=== PATIENT | male | born 1990 | race African-American/Black ===

== ENCOUNTER 2017-12-03 23:32 | Emergency (ER) | payer OTHER ==
[~2017-12-03] VITALS: Ht 190.5 cm; Wt 80.0 kg
[~2017-12-03 23:32] MED LIST: AMOX500T2 PO; IBUP-2070 PO
[2017-12-04 02:07] VITALS: BP 119/56
[2017-12-04] MEDS ORDERED: NAPROXEN 250 MG TABLET PO ONE (02:15)
== END 2017-12-04 02:19 | disposition home or self-care (01) ==
LOC: EMS 23:33
DX: S60.211A Contusion of right wrist, initial encounter (principal); J45.909 Unspecified asthma, uncomplicated; F90.9 Attention-deficit hyperactivity disorder, unspecified type; F17.200 Nicotine dependence, unspecified, uncomplicated; Z91.018 Allergy to other foods; W22.8XXA Striking against or struck by other objects, initial encounter; Y93.89 Activity, other specified; Y92.89 Other specified places as the place of occurrence of the external cause; Y99.8 Other external cause status
CPT/HCPCS: 99284

== ENCOUNTER 2018-01-04 21:49 | Emergency (ER) | payer OTHER ==
[~2018-01-04] VITALS: Ht 188 cm; Wt 68.2 kg
[~2018-01-04 21:49] MED LIST changes: -AMOX500T2 PO
[2018-01-04] MEDS ORDERED: IBUPROFEN 600 MG TABLET PO ONE (22:45)
[2018-01-04] MEDS ORDERED: HYDROCODONE/ACETAMINOPHEN 5-325 MG TABLET PO ONE (22:45)
[2018-01-05 00:05] VITALS: BP 128/70
== END 2018-01-05 00:41 | disposition home or self-care (01) ==
LOC: EMS 21:50
DX: S63.91XA Sprain of unspecified part of right wrist and hand, initial encounter (principal); J45.909 Unspecified asthma, uncomplicated; Z87.891 Personal history of nicotine dependence; Z91.018 Allergy to other foods; V29.9XXA Motorcycle rider (driver) (passenger) injured in unspecified traffic accident, initial encounter; Y93.55 Activity, bike riding; Y92.89 Other specified places as the place of occurrence of the external cause; Y99.8 Other external cause status
CPT/HCPCS: 99284

== ENCOUNTER 2018-05-30 11:29 | Emergency (ER) | payer OTHER ==
[~2018-05-30] VITALS: Ht 185.4 cm; Wt 68.2 kg
[2018-05-30] MEDS ORDERED: IBUPROFEN 800 MG TABLET PO ONE (12:15)
[2018-05-30 13:37] VITALS: BP 131/77
== END 2018-05-30 13:47 | disposition home or self-care (01) ==
LOC: EMS 11:30
DX: S60.221A Contusion of right hand, initial encounter (principal); J45.909 Unspecified asthma, uncomplicated; F17.210 Nicotine dependence, cigarettes, uncomplicated; Z91.018 Allergy to other foods; V19.9XXA Pedal cyclist (driver) (passenger) injured in unspecified traffic accident, initial encounter; Y93.I9 Activity, other involving external motion; Y92.89 Other specified places as the place of occurrence of the external cause; Y99.8 Other external cause status
CPT/HCPCS: 99284

== ENCOUNTER 2018-09-13 01:52 | Emergency (ER) | payer OTHER ==
[~2018-09-13] VITALS: Ht 185.4 cm; Wt 75.0 kg
[2018-09-13] MEDS ORDERED: IBUPROFEN 600 MG TABLET PO ONE (04:45)
[2018-09-13 05:07] VITALS: BP 126/72
== END 2018-09-13 05:38 | disposition home or self-care (01) ==
LOC: EMS 01:53
DX: S63.91XA Sprain of unspecified part of right wrist and hand, initial encounter (principal); J45.909 Unspecified asthma, uncomplicated; F17.210 Nicotine dependence, cigarettes, uncomplicated; Z91.018 Allergy to other foods; W18.39XA Other fall on same level, initial encounter; Y93.61 Activity, american tackle football; Y92.89 Other specified places as the place of occurrence of the external cause; Y99.8 Other external cause status
CPT/HCPCS: 99406

== ENCOUNTER 2019-02-15 20:19 | Emergency (ER) | payer OTHER ==
[~2019-02-15] VITALS: Ht 188 cm; Wt 65.9 kg
[2019-02-16] MEDS ORDERED: HYDROCODONE/ACETAMINOPHEN 5-325 MG TABLET PO ONE
[2019-02-16] MEDS ORDERED: METHOCARBAMOL 500 MG TABLET PO ONE
[2019-02-16 00:16] VITALS: BP 126/72
== END 2019-02-16 00:19 | disposition home or self-care (01) ==
LOC: EMS 20:20
DX: S39.012A Strain of muscle, fascia and tendon of lower back, initial encounter (principal); J45.909 Unspecified asthma, uncomplicated; F12.90 Cannabis use, unspecified, uncomplicated; F17.210 Nicotine dependence, cigarettes, uncomplicated; Z91.030 Bee allergy status; Z91.018 Allergy to other foods; X50.0XXA Overexertion from strenuous movement or load, initial encounter; Y93.89 Activity, other specified; Y92.89 Other specified places as the place of occurrence of the external cause; Y99.8 Other external cause status

== ENCOUNTER 2019-06-10 03:11 | Emergency (ER) | payer OTHER ==
[~2019-06-10] VITALS: Ht 188 cm; Wt 70.5 kg
[2019-06-10 04:14] LABS: BASOPHILS % (AUTO) 0.4 % (0.0-2.0); EOSINOPHILS % (AUTO) 0.1 % (1.0-6.0); HEMATOCRIT 40.8 % (41-53); HEMOGLOBIN 14.1 g/dL (13.5-17.5); LYMPHOCYTES % (AUTO) 12.7 % (22.0-44.0); MEAN CORPUSCULAR HGB CONC 34.6 G/dL (31.0-37.0); MEAN CORPUSCULAR VOLUME 93 fL (80-100); MONOCYTES # (AUTO) 0.5 K/uL (0.1-1.0); NEUTROPHILS # (AUTO) 6.1 K/uL (1.8-7.7); NEUTROPHILS % (AUTO) 80.8 % (40.0-70.0); PLATELET COUNT (AUTO) 220 K/uL (150-450); RED BLOOD CELL COUNT(AUTO) 4.41 MIL/uL (4.50-5.90); RED CELL DISTRIBUTION WIDTH 13.9 % (11.5-14.5)
[2019-06-10 04:15] VITALS: BP 132/7
[2019-06-10 04:22] LABS: ANION GAP 9 mmol/L (8-16); CALCIUM, TOTAL 9.8 mg/dL (8.8-10.5); CARBON DIOXIDE 29 mmol/L (22-29); CHLORIDE 104 mmol/L (98-107); CREATININE 1.01 mg/dL (0.60-1.30); GLOMERULAR FILTR. RATE CALC > 60 mL/min (>60); GLUCOSE,RANDOM 95 mg/dL (70-110); POTASSIUM 4.3 mmol/L (3.5-5.1); SODIUM SERUM 142 mmol/L (136-145); UREA NITROGEN, BLOOD 9 mg/dL (7-18)
[2019-06-10 04:28] LABS: ALANINE AMINOTRANSFERASE 22 U/L (12-78); ALBUMIN 4.7 g/dL (3.4-5.0); ALKALINE PHOSPHATASE 68 U/L (46-116); ASPARTATE AMINOTRANSFERASE 17 U/L (15-37); BILIRUBIN,TOTAL 0.3 mg/dL (0.1-1.0); TOTAL PROTEIN, SERUM 8.2 g/dL (6.4-8.2)
== END 2019-06-10 05:23 | disposition left against medical advice (07) ==
LOC: EMS 03:11
DX: F10.129 Alcohol abuse with intoxication, unspecified (principal); F17.210 Nicotine dependence, cigarettes, uncomplicated; F12.90 Cannabis use, unspecified, uncomplicated; J45.909 Unspecified asthma, uncomplicated; Y90.0 Blood alcohol level of less than 20 mg/100 ml
CPT/HCPCS: 36415; 80053; 84484; 85025; 99283; G0480

== ENCOUNTER 2019-08-14 10:35 | Emergency (ER) | payer OTHER ==
[~2019-08-14] VITALS: Ht 188 cm; Wt 70.5 kg
[2019-08-14] MEDS ORDERED: IBUPROFEN 400 MG TABLET PO ONE (11:30)
[2019-08-14] MEDS ORDERED: LIDOCAINE 5% TRANSDERMAL PATCH TD ONE (11:30)
[2019-08-14 13:07] LABS: BASOPHILS % (AUTO) 0.3 % (0.0-2.0); EOSINOPHILS % (AUTO) 0.2 % (1.0-6.0); HEMATOCRIT 39.4 % (41-53); HEMOGLOBIN 13.7 g/dL (13.5-17.5); LYMPHOCYTES # (AUTO) 1.3 K/uL (1.0-4.8); LYMPHOCYTES % (AUTO) 11.9 % (22.0-44.0); MEAN CORPUSCULAR HEMOGLOBIN 32.2 pg (26.0-34.0); MEAN CORPUSCULAR HGB CONC 34.7 G/dL (31.0-37.0); MEAN CORPUSCULAR VOLUME 93 fL (80-100); MONOCYTES # (AUTO) 1.2 K/uL (0.1-1.0); MONOCYTES % (AUTO) 10.8 % (2.0-9.0); NEUTROPHILS # (AUTO) 8.2 K/uL (1.8-7.7); NEUTROPHILS % (AUTO) 76.8 % (40.0-70.0); PLATELET COUNT (AUTO) 245 K/uL (150-450); RED BLOOD CELL COUNT(AUTO) 4.25 MIL/uL (4.50-5.90); RED CELL DISTRIBUTION WIDTH 13.8 % (11.5-14.5)
[2019-08-14 13:17] LABS: ANION GAP 8 mmol/L (8-16); CALCIUM, TOTAL 8.9 mg/dL (8.8-10.5); CARBON DIOXIDE 29 mmol/L (22-29); CHLORIDE 103 mmol/L (98-107); CREATININE 0.92 mg/dL (0.60-1.30); GLOMERULAR FILTR. RATE CALC > 60 mL/min (>60); GLUCOSE,RANDOM 99 mg/dL (70-110); POTASSIUM 3.8 mmol/L (3.5-5.1); SODIUM SERUM 140 mmol/L (136-145); UREA NITROGEN, BLOOD 12 mg/dL (7-18)
[2019-08-14 13:23] LABS: ALANINE AMINOTRANSFERASE 18 U/L (12-78); ALBUMIN 3.9 g/dL (3.4-5.0); ALKALINE PHOSPHATASE 74 U/L (46-116); ASPARTATE AMINOTRANSFERASE 15 U/L (15-37); BILIRUBIN,TOTAL 0.5 mg/dL (0.1-1.0)
[2019-08-14 15:03] VITALS: BP 123/71
== END 2019-08-14 15:05 | disposition home or self-care (01) ==
LOC: EMS 10:36
DX: S20.211A Contusion of right front wall of thorax, initial encounter (principal); J45.909 Unspecified asthma, uncomplicated; F90.9 Attention-deficit hyperactivity disorder, unspecified type; F17.210 Nicotine dependence, cigarettes, uncomplicated; F12.90 Cannabis use, unspecified, uncomplicated; Z88.8 Allergy status to other drugs, medicaments and biological substances; Z91.030 Bee allergy status; Z79.899 Other long term (current) drug therapy; X50.9XXA Other and unspecified overexertion or strenuous movements or postures, initial encounter; Y93.89 Activity, other specified; Y92.89 Other specified places as the place of occurrence of the external cause; Y99.8 Other external cause status

== ENCOUNTER 2019-10-12 08:45 | Emergency (ER) | payer OTHER ==
[~2019-10-12] VITALS: Ht 188 cm; Wt 68.2 kg
[2019-10-12] MEDS ORDERED: KETOROLAC TROMETHAMINE 30 MG/ML VIAL IM ONE (09:15)
[2019-10-12] MEDS ORDERED: HYDROCODONE/ACETAMINOPHEN 5-325 MG TABLET PO ONE (09:15)
[2019-10-12 09:49] VITALS: BP 110/72
== END 2019-10-12 10:45 | disposition home or self-care (01) ==
LOC: EMS 08:45
DX: S76.011A Strain of muscle, fascia and tendon of right hip, initial encounter (principal); S43.491A Other sprain of right shoulder joint, initial encounter; J45.909 Unspecified asthma, uncomplicated; F90.9 Attention-deficit hyperactivity disorder, unspecified type; F17.210 Nicotine dependence, cigarettes, uncomplicated; F12.90 Cannabis use, unspecified, uncomplicated; F11.90 Opioid use, unspecified, uncomplicated; Z88.8 Allergy status to other drugs, medicaments and biological substances; V18.0XXA Pedal cycle driver injured in noncollision transport accident in nontraffic accident, initial encounter; Y93.89 Activity, other specified; Y92.488 Other paved roadways as the place of occurrence of the external cause; Y99.8 Other external cause status
CPT/HCPCS: 73030; 73502; 96372; 99283; J1885

== ENCOUNTER 2020-06-01 17:32 | Emergency (ER) | payer OTHER ==
[~2020-06-01] VITALS: Ht 190.5 cm; Wt 79.5 kg
[2020-06-01 17:34] VITALS: BP 119/82
== END 2020-06-01 18:00 | disposition left against medical advice (07) ==
LOC: EMS 17:33
DX: Z53.21 Procedure and treatment not carried out due to patient leaving prior to being seen by health care provider (principal)

== ENCOUNTER 2020-06-01 20:57 | Emergency (ER) | payer OTHER ==
[~2020-06-01] VITALS: Ht 188 cm; Wt 79.5 kg
[2020-06-01] MEDS ORDERED: IBUPROFEN 600 MG TABLET PO ONE (22:30)
[2020-06-01] MEDS ORDERED: LIDOCAINE 1% 10 ML VIAL INJ ONE (22:30)
[2020-06-01] MEDS ORDERED: PENICILLIN V POTASSIUM 500 MG TABLET PO ONE (22:30)
[2020-06-01] MEDS ORDERED: PERTUSS(ACELL),DIPH,TET VAC/PF 0.5 ML VIAL IM ONE (22:30)
[2020-06-01] MEDS ORDERED: BACITRACIN 0.9 GM PACKET OINTMENT TP ONE (22:30)
[2020-06-01 23:30] VITALS: BP 121/69
== END 2020-06-02 00:17 | disposition home or self-care (01) ==
LOC: EMS 20:59
DX: S01.511A Laceration without foreign body of lip, initial encounter (principal); S03.2XXA Dislocation of tooth, initial encounter; F17.210 Nicotine dependence, cigarettes, uncomplicated; Y04.0XXA Assault by unarmed brawl or fight, initial encounter; Y93.89 Activity, other specified; Y92.89 Other specified places as the place of occurrence of the external cause; Y99.8 Other external cause status
CPT/HCPCS: 12013; 90471; 90715; 99283; 99406; J3490

== ENCOUNTER 2020-09-29 12:50 | Emergency (ER) | payer OTHER ==
[~2020-09-29] VITALS: Ht 182.9 cm; Wt 75.0 kg
[2020-09-29 13:46] VITALS: BP 128/68
== END 2020-09-29 14:16 | disposition home or self-care (01) ==
LOC: EMS 12:53
DX: U07.1 COVID-19 (principal); M54.5 Low back pain; G89.29 Other chronic pain; R43.9 Unspecified disturbances of smell and taste; J45.909 Unspecified asthma, uncomplicated; F17.210 Nicotine dependence, cigarettes, uncomplicated; F12.90 Cannabis use, unspecified, uncomplicated; F13.10 Sedative, hypnotic or anxiolytic abuse, uncomplicated; Z91.030 Bee allergy status; Z91.018 Allergy to other foods
CPT/HCPCS: 99283; U0003

== ENCOUNTER 2021-08-15 19:19 | Emergency (ER) | payer OTHER ==
[~2021-08-15] VITALS: Ht 188 cm; Wt 63.6 kg
[2021-08-15] MEDS ORDERED: HYDROCODONE/ACETAMINOPHEN 5-325 MG TABLET PO ONE (20:00)
[2021-08-15] MEDS ORDERED: PENICILLIN V POTASSIUM 500 MG TABLET PO ONE (20:00)
[2021-08-15 21:00] VITALS: BP 124/77
== END 2021-08-15 22:18 | disposition home or self-care (01) ==
LOC: EMS 19:23
DX: S60.221A Contusion of right hand, initial encounter (principal); K08.89 Other specified disorders of teeth and supporting structures; J45.909 Unspecified asthma, uncomplicated; F17.210 Nicotine dependence, cigarettes, uncomplicated; F12.90 Cannabis use, unspecified, uncomplicated; Z91.018 Allergy to other foods; Y04.0XXA Assault by unarmed brawl or fight, initial encounter; Y93.89 Activity, other specified; Y92.89 Other specified places as the place of occurrence of the external cause; Y99.8 Other external cause status
CPT/HCPCS: 99283

== ENCOUNTER 2021-10-12 09:47 | Emergency (ER) | payer OTHER ==
[~2021-10-12] VITALS: Ht 188 cm; Wt 63.6 kg
[2021-10-12 13:25] VITALS: BP 129/71
[2021-10-12] MEDS ORDERED: IBUPROFEN 600 MG TABLET PO ONE (13:30)
== END 2021-10-12 13:48 | disposition home or self-care (01) ==
LOC: EMS 09:47
DX: S90.31XA Contusion of right foot, initial encounter (principal); J45.909 Unspecified asthma, uncomplicated; F12.90 Cannabis use, unspecified, uncomplicated; F16.90 Hallucinogen use, unspecified, uncomplicated; F17.210 Nicotine dependence, cigarettes, uncomplicated; Z91.030 Bee allergy status; Z91.018 Allergy to other foods; W20.8XXA Other cause of strike by thrown, projected or falling object, initial encounter; Y93.89 Activity, other specified; Y92.89 Other specified places as the place of occurrence of the external cause; Y99.8 Other external cause status
CPT/HCPCS: 99283

== ENCOUNTER 2022-02-10 21:03 | Emergency (ER) | payer OTHER ==
[~2022-02-10] VITALS: Ht 185.4 cm; Wt 63.6 kg
[2022-02-10 21:15] VITALS: BP 117/77
[2022-02-10] MEDS ORDERED: HYDROCODONE/ACETAMINOPHEN 5-325 MG TABLET PO ONE (22:15)
[2022-02-10] MEDS ORDERED: SODIUM CHLORIDE 0.9% 250 ML IRRIG SOLUTION BOTTLE IRRIG ONE (22:15)
[2022-02-10] MEDS ORDERED: LIDOCAINE 1% 10 ML VIAL ID ONE (22:15)
== END 2022-02-11 01:11 | disposition home or self-care (01) ==
LOC: EMS 21:03
DX: S01.81XA Laceration without foreign body of other part of head, initial encounter (principal); F90.9 Attention-deficit hyperactivity disorder, unspecified type; F10.20 Alcohol dependence, uncomplicated; F12.10 Cannabis abuse, uncomplicated; F15.90 Other stimulant use, unspecified, uncomplicated; F17.210 Nicotine dependence, cigarettes, uncomplicated; J45.909 Unspecified asthma, uncomplicated; W01.0XXA Fall on same level from slipping, tripping and stumbling without subsequent striking against object, initial encounter; Y93.89 Activity, other specified; Y92.89 Other specified places as the place of occurrence of the external cause; Y99.8 Other external cause status
CPT/HCPCS: 12013; 99283; J3490

== ENCOUNTER 2022-04-01 19:54 | Emergency (ER) | payer OTHER ==
[~2022-04-01] VITALS: Ht 188 cm; Wt 68.0 kg
[2022-04-01 20:00] VITALS: BP 150/84
== END 2022-04-01 20:40 | disposition left against medical advice (07) ==
LOC: EMS 19:54
DX: R07.89 Other chest pain (principal); Z53.21 Procedure and treatment not carried out due to patient leaving prior to being seen by health care provider
CPT/HCPCS: 93005

== ENCOUNTER 2023-06-21 19:34 | Emergency (ER) | payer OTHER ==
[~2023-06-21] VITALS: Ht 188 cm; Wt 65.0 kg
[2023-06-21 19:41] VITALS: BP 143/79; PULSE 122; RESP 16; TEMP 98.7
== END 2023-06-21 20:58 | disposition left against medical advice (07) ==
LOC: EMS 19:37
DX: S00.412A Abrasion of left ear, initial encounter (principal); H61.22 Impacted cerumen, left ear; H60.92 Unspecified otitis externa, left ear; J45.909 Unspecified asthma, uncomplicated; F90.9 Attention-deficit hyperactivity disorder, unspecified type; F17.210 Nicotine dependence, cigarettes, uncomplicated; F12.90 Cannabis use, unspecified, uncomplicated; F15.90 Other stimulant use, unspecified, uncomplicated; Z98.890 Other specified postprocedural states; Z91.030 Bee allergy status; Z91.018 Allergy to other foods; X58.XXXA Exposure to other specified factors, initial encounter; Y93.89 Activity, other specified; Y92.89 Other specified places as the place of occurrence of the external cause; Y99.8 Other external cause status
CPT/HCPCS: 99281; Z7502

== ENCOUNTER 2024-11-25 14:11 | Emergency (ER) | payer OTHER ==
[~2024-11-25] VITALS: Ht 190.5 cm; Wt 100.0 kg
[2024-11-25 14:35] VITALS: TEMP 98.1
[2024-11-25 16:03] VITALS: BP 149/90; PULSE 90; RESP 19; O2SAT 96
[2024-11-25] MEDS ORDERED: ACET-3385 PO (16:22)
[2024-11-25] MEDS: ACETAMINOPHEN 500 MG TABLET PO ONE (16:23)
[2024-11-25] MEDS: LIDOCAINE 5% TRANSDERMAL PATCH TD ONE (16:23)
== END 2024-11-25 16:38 | disposition home or self-care (01) ==
LOC: EMS 14:11
DX: S39.012A Strain of muscle, fascia and tendon of lower back, initial encounter (principal); R60.1 Generalized edema; J45.909 Unspecified asthma, uncomplicated; F12.90 Cannabis use, unspecified, uncomplicated; F15.90 Other stimulant use, unspecified, uncomplicated; F19.90 Other psychoactive substance use, unspecified, uncomplicated; F17.210 Nicotine dependence, cigarettes, uncomplicated; Z72.89 Other problems related to lifestyle; Z91.030 Bee allergy status; Z91.018 Allergy to other foods; X58.XXXA Exposure to other specified factors, initial encounter; Y93.89 Activity, other specified; Y92.89 Other specified places as the place of occurrence of the external cause; Y99.8 Other external cause status
CPT/HCPCS: 93971; 99284; Z7502; Z7610